=== PATIENT | male | born 1960 | race African-American/Black ===

== ENCOUNTER 2021-02-23 16:42 | Emergency (ER) | payer OTHER, MEDICAID ==
[~2021-02-23] VITALS: Ht 180.3 cm; Wt 66.0 kg
[~2021-02-23 16:42] MED LIST: AMLO2.5T45 PO; FERR-43 PO
[2021-02-23] MEDS ORDERED: IBUPROFEN 600MG TABLET PO STA (17:41)
[2021-02-23 18:13] VITALS: BP 114/69
[2021-02-23] MEDS ORDERED: IBUP-2029 MT (18:26)
== END 2021-02-23 19:03 | disposition home or self-care (01) ==
LOC: ER 16:42
DX: U07.1 COVID-19 (principal); I10 Essential (primary) hypertension
CPT/HCPCS: 71045; 99284; C9803; J7042; U0003; U0005